=== PATIENT | female | born 1985 | race Caucasian/White ===

== ENCOUNTER → 2020-04-22 11:50 | Outpatient (CLI) | payer OTHER, SELFPAY ==
--- NOTE | 2020-04-22 11:55 | US_ITS ---
STUDY: SUPERFICIAL ULTRASOUND - RIGHT MCBRIDE REASON FOR EXAM: Female, 35 years old. RT MCBRIDE MASS X YEARS - SOMETIMES PAINFUL TECHNIQUE: A superficial ultrasound was performed with real-time and static galvan-scale imaging. COMPARISON: None. FINDINGS: Sonographic evaluation of the area of concern, shows a vague echogenic area measuring approximately 0.9 x 0.6 x 0.3 cm. There is no suspicious change fluid collection, hyperemia or evidence of a sinus tract to the skin. US/Ext Non Vasc Limited/Soft Tiss IMPRESSION: Subcutaneous echogenic area in the area of concern measuring 0.9 x 0.6 x 0.3 cm, I suspect this likely represents sequela from previous trauma, there is no sonographic evidence of aggressive abnormality. Electronically Signed: Siddharth Osullivan MD at 11:49 EST , Service support ,
== END ==
PROVIDERS: PCP Family Medicine; Referring Provider Family Medicine; Visit Provider Family Medicine
DX: M79.89 Other specified soft tissue disorders (principal)
CPT/HCPCS: 76882